=== PATIENT | female | born 1935 | race Caucasian/White ===

== ENCOUNTER 2018-10-13 20:14 | Inpatient (IN) | payer MEDICARE, OTHER ==
[2018-10-13] VITALS (105 sets, daily range): BP systolic 199; BP diastolic 76; PULSE 61; TEMP 97.8; O2SAT 84–100
[~2018-10-13] VITALS: Ht 160 cm; Wt 73.4 kg
--- NOTE | 2018-10-13 21:41 | NUR ---
Arrived to the unit via EMS. Patient alert and in no distress upon arrival. Attached to all monitors. Son and at bedside. All questions and concerns addressed.
--- NOTE | 2018-10-13 22:00 | NUR ---
Patient alert and partially oriented. Able to say the month and knows the current present, but unable to state day and year. Frequently looks to to help with answering quesions. Able to follow all commands appropriately.
--- NOTE | 2018-10-13 22:30 | NUR ---
Hospitalist notified about patient elevated BP. Received PRN order for Hydralazine.
[2018-10-13 22:42] LABS: MAGNESIUM 1.6 mg/dL (1.6-2.3)
[2018-10-13 22:58] LABS: TROPONIN-I 0.213 ng/mL (0.000-0.035)
[2018-10-14] VITALS (408 sets, daily range): BP systolic 105–183; BP diastolic 46–88; PULSE 53–74; TEMP 97.8–98.4; O2SAT 83–100
[2018-10-14] LABS: CALCIUM 9.8 mg/dL (8.4-10.2); CREATININE, serum 1.01 (0.52-1.25); POTASSIUM 3.3 mmol/L (3.4-5.0)
[2018-10-14] MEDS ORDERED: BENICAR HCT 251 TAB PO (00:54)
[2018-10-14] MEDS ORDERED: BYSTOLIC20 MG PO (00:54)
[2018-10-14] MEDS ORDERED: COUMADIN 5MG5 MG/TAB PO ×2 (00:55→00:56)
[2018-10-14] MEDS ORDERED: CATAPRES0.2 MG PO (00:55)
[2018-10-14] MEDS ORDERED: TIAZAC240 MG PO (00:57)
[2018-10-14] MEDS ORDERED: XALATAN EYE DROPS OD (00:57)
[2018-10-14] MEDS ORDERED: LOTENSIN40 MG PO (00:58)
[2018-10-14] MEDS ORDERED: GLUCOPHAGE500 MG/TAB PO (00:58)
[2018-10-14] MEDS ORDERED: PRILOSEC 20MG20 MG PO (00:58)
[2018-10-14] MEDS ORDERED: K-DUR20 MEQ PO (01:00)
[2018-10-14] MEDS ORDERED: CALCIUM 600MG+D1 TAB PO (01:00)
[2018-10-14] MEDS ORDERED: MAG-OX 400400 MG/TAB PO (01:00)
[2018-10-14] MEDS ORDERED: ASPIRIN 81M81 MG/TA2 PO (01:00)
[2018-10-14] MEDS ORDERED: EPA FISH OIL1000 MG PO (01:01)
[2018-10-14] MEDS ORDERED: FERRO-TIME325 MG PO (01:01)
[2018-10-14] MEDS ORDERED: GENTEAL 10 ML10 M1 OP (01:02)
[2018-10-14] MEDS ORDERED: SYSTANE0.3% OP (01:02)
--- NOTE | 2018-10-14 03:47 | NUR ---
Resting quietly in bed. Woke up to take potassium replacement. No concerns at this time
[2018-10-14 05:13] LABS: BASO # 0.1 (0.0-0.2); BASO % 0.6 % (0.0-2.0); EOS % 0.3 % (0-4.0); GRAN # 5.7 (1.4-6.5); GRAN % 53.1 % (42.2-75.2); HEMATOCRIT 36.2 % (37.0-47.0); HEMOGLOBIN 11.8 g/dl (12.5-16.0); LYMPH # 3.7 (1.2-3.4); LYMPH % 34.1 % (20.0-51.0); MEAN CELL VOLUME 88 fl (80.0-100.0); MEAN CORPUSCULAR HEMOGLOBIN 29 pg (27.0-31.0); MEAN CORPUSCULAR HGB CONC 33 g/dl (33.0-37.0); MEAN PLATELET VOLUME 8.6 fl (7.4-10.4); MONO # 1.2 (0.1-0.6); MONO % 11.5 % (1.7-9.3); PLATELET COUNT 294 K/mm3 (130-400); RED BLOOD COUNT 4.11 M/mm3 (4.10-5.30); REDCELL DISTRIBUTION WIDTH-CV 13.7 % (11.5-14.5)
[2018-10-14 05:20] LABS: INR 3.2 (0.8-3.0); PROTHROMBIN TIME 36.3 SECONDS (9.7-12.8)
[2018-10-14 05:27] LABS: ALBUMIN 3.6 gm/dL (3.5-5.0); BILIRUBIN,TOTAL 0.4 mg/dL (0.0-1.0); CALCIUM 9.5 mg/dL (8.4-10.2); CHOLESTEROL RISK RATIO 5.4; CREATININE, serum 0.83 (0.52-1.25); MAGNESIUM 2.3 mg/dL (1.6-2.3); POTASSIUM 3.7 mmol/L (3.4-5.0); TOTAL PROTEIN 7.4 gm/dL (6.4-8.2)
[2018-10-14 05:37] LABS: TROPONIN-I 0.163 ng/mL (0.000-0.035)
--- NOTE | 2018-10-14 10:24 | NUR ---
ALONSO met with the patient to discuss a discharge plan. The patient lives in [place] with her [place]. The pt does not use any DME and reports independence with ADLs. The pt's PCP is Dr. Nika Gonzales and the pt receives her medication from [facility]. The pt reports no difficulties obtaining her medications. The pt does not have advanced directives in the EMR, but reports she does have them completed. The patient plans to return home upon discharge. There are no additional needs at this time.
--- NOTE | 2018-10-14 11:33 | NUR ---
Patient resting in bed this AM. She denies any pain/discomfort at this time. Denies any c/o chest pain. Patient is alert and oriented x 3 Skin w/d. Color pale pink. w/d. Lung CTA with resp even/unlabored. HR strong/regular at this time. Patient remains in NSR. Abd soft with bowel sounds x 4 quads. Patient has been up to the bathroom multiple times this AM; voiding only 150-200 cc per void. Patient reports this is normal for her. Will get an order for UA just to assure no infection is present. PPP. No pedal edema noted. Patient is steady on her feet and denies any dizziness/light headedness with movement
--- NOTE | 2018-10-14 11:49 | NUR ---
Initial visit; Patient thanked Retail Worker for looking in on her and offering God's blessings.
[2018-10-14 14:17] LABS: PH 9 (5-8); SQUAMOUS EPITHELIAL 0-2 /hpf; URINE APPEARANCE Clear; URINE BACTERIA None Seen /hpf; URINE BILIRUBIN Negative (NEGATIVE); URINE BLOOD Negative (NEGATIVE); URINE COLOR Straw; URINE GLUCOSE Negative (NEGATIVE); URINE KETONE Negative (NEGATIVE); URINE LEUKOCYTE ESTERASE Negative (NEGATIVE); URINE NITRATE Negative (NEGATIVE); URINE PROTEIN(semi-quant) Negative (NEGATIVE); URINE RBC 0-2 /hpf; URINE UROBILINOGEN Negative (NEGATIVE)
[2018-10-14 14:28] LABS: COLLECTION METHOD CLEAN CATCH
--- NOTE | 2018-10-14 19:21 | NUR ---
Report with KEVYN Lemos. Pt resting in bed, denies needs at this time. Call light in reach.
[2018-10-15] VITALS (10 sets, daily range): BP systolic 100–172; BP diastolic 39–68; PULSE 50–76; TEMP 97.7–98.6
--- NOTE | 2018-10-15 02:18 | NUR ---
PATIENT WALKING OUT IN HALLWAY SAYING "SOMETHING IS WRONG, I SIGNED TO HAVE SOMETHING DONE AND I DON'T WANT TO DO IT". PERSONAL BELONGINGS PACKED AND PATIENT CALLED TO TAKE HER HOME. LOOKING AT CHART PATIENT HAS CUBA SCAN SCHEDULED IN AM WITH SIGNED CONSENT ON CHART. CONSENT FORM AND PRINTED EDUCATION ON CUBA SCAN REVIEWED WITH PATIENT. PATIENT STILL APPREHENSIVE DEMANDING TO GO HOME. DISCUSSED RISK OF LEAVING THE HOSPITAL AT THIS TIME. INFORMED PATIENT THAT NO TEST OR PROCEDURES WOULD BE PERFORMED WITHOUT HER INFORMED CONSENT. AFTER DISCUSSION PATIENT AGREES TO STAY AND TALK TO CARDIOLOGY WHEN THEY ROUND. AT END OF VISIT PATIENT SITTING ON BEDSIDE COUCH WATCHING BASEBALL GAME ON TV. DENIES NEEDS.
--- NOTE | 2018-10-15 06:28 | NUR ---
DR TINEO PAGED REGARDING QTc. TELEPHONE ORDER RECEIVED TO GIVE SOTOLOL PREVIOUSLY ORDERED. NOTIFIED OF PATIENTS NOT WANTING CUBA SCAN AND HE SAYS OKAY.
[2018-10-15 07:16] LABS: BASO # 0.1 (0.0-0.2); BASO % 0.5 % (0.0-2.0); GRAN % 55.8 % (42.2-75.2); HEMOGLOBIN 11.6 g/dl (12.5-16.0); LYMPH # 3.5 (1.2-3.4); LYMPH % 32.6 % (20.0-51.0); MEAN CELL VOLUME 88 fl (80.0-100.0); MEAN CORPUSCULAR HEMOGLOBIN 29 pg (27.0-31.0); MEAN CORPUSCULAR HGB CONC 33 g/dl (33.0-37.0); MEAN PLATELET VOLUME 8.9 fl (7.4-10.4); MONO # 1.2 (0.1-0.6); MONO % 10.8 % (1.7-9.3); PLATELET COUNT 300 K/mm3 (130-400); RED BLOOD COUNT 4.05 M/mm3 (4.10-5.30); REDCELL DISTRIBUTION WIDTH-CV 13.7 % (11.5-14.5)
[2018-10-15 07:24] LABS: HEMATOCRIT 35.6 % (37.0-47.0)
[2018-10-15 07:32] LABS: CALCIUM 9.6 mg/dL (8.4-10.2); CREATININE, serum 1.11 (0.52-1.25); INR 2.3 (0.8-3.0); MAGNESIUM 2.1 mg/dL (1.6-2.3); POTASSIUM 3.6 mmol/L (3.4-5.0); PROTHROMBIN TIME 27.2 SECONDS (9.7-12.8)
[2018-10-15 07:47] LABS: TROPONIN-I 0.061 ng/mL (0.000-0.035)
--- NOTE | 2018-10-15 09:56 | NUR ---
Pt taken down to finish Lexiscan.
--- NOTE | 2018-10-15 10:06 | NUR ---
Initial visit; Patient thanked Tower Erector Helper for looking in on her and offering God's blessings. Patient hopes to be discharged today.
--- NOTE | 2018-10-15 11:39 | NUR ---
Pt returned from [facility]. Pt alert and oriented and wants to drink.
--- NOTE | 2018-10-15 18:00 | NUR ---
Pt lexiscan was negative. Pt independent in the room. Pt alert and oriented. Pt IV intact no redness or infiltration. Pt has spouse in room. Pt denies SOB or chest pain and remains on telemetry. Pt has call light in reach and jaylon further needs. Pt sotolol given late d/t lexiscan so HS dose held per pharmacy.
--- NOTE | 2018-10-15 20:40 | NUR ---
Pt resting with HOB elevated. Denies pain or discomfort. No distress noted. Assessment WNL. Respirations even and unlabored. Lungs clear. BS+. Abdomen soft and nontender. Vital signs stable. Telemetry in place- Sinus bradycardia. No needs noted at this time. Will continue to monitor.
[2018-10-16 02:54] LABS: BASO % 0.3 % (0.0-2.0); EOS % 0.1 % (0-4.0); GRAN # 5.8 (1.4-6.5); GRAN % 53.3 % (42.2-75.2); HEMOGLOBIN 11.5 g/dl (12.5-16.0); LYMPH # 3.7 (1.2-3.4); LYMPH % 34.2 % (20.0-51.0); MEAN CELL VOLUME 86 fl (80.0-100.0); MEAN CORPUSCULAR HEMOGLOBIN 29 pg (27.0-31.0); MEAN CORPUSCULAR HGB CONC 33 g/dl (33.0-37.0); MEAN PLATELET VOLUME 8.7 fl (7.4-10.4); MONO # 1.3 (0.1-0.6); MONO % 11.8 % (1.7-9.3); PLATELET COUNT 291 K/mm3 (130-400); RED BLOOD COUNT 4.02 M/mm3 (4.10-5.30); REDCELL DISTRIBUTION WIDTH-CV 13.6 % (11.5-14.5)
[2018-10-16 02:56] LABS: HEMATOCRIT 34.7 % (37.0-47.0)
[2018-10-16 03:06] LABS: CALCIUM 10.3 mg/dL (8.4-10.2); CREATININE, serum 1.16 (0.52-1.25); POTASSIUM 3.3 mmol/L (3.4-5.0)
--- NOTE | 2018-10-16 03:20 | NUR ---
Patients K level resulted at 3.3 this AM. Potassium protocol initiated. Replacement orders placed.
[2018-10-16 03:21] VITALS: BP 144/49; PULSE 50; TEMP 98.6
--- NOTE | 2018-10-16 07:00 | NUR ---
Report given to Eloy BAGLEY. Pt is resting this AM. No distress. No complaints.
[2018-10-16 07:49] VITALS: BP 143/47; PULSE 52; TEMP 97.4
[2018-10-16] MEDS ORDERED: LIPITOR 10MG10 MG PO (07:54)
[2018-10-16] MEDS ORDERED: BETAPACE 80MG80 MG PO (07:55)
[2018-10-16 09:26] LABS: INR 1.8 (0.8-3.0); PROTHROMBIN TIME 20.8 SECONDS (9.7-12.8)
--- NOTE | 2018-10-16 09:41 | NUR ---
Patient will discharge home today, 10/16. SW presented IM to patient and . Patient signed but did not want a copy.
--- NOTE | 2018-10-16 10:19 | NUR ---
Pt resting in bed watching TV, up to restroom earlier, no C/O pain at this time, shift assessments complete, left Pt call light in reach, bed in lowest position.
[2018-10-16] MEDS ORDERED: CARDIZEM CD 18180 MG PO (11:08)
[2018-10-16 11:37] VITALS: BP 128/89; PULSE 54; TEMP 98.2
--- NOTE | 2018-10-16 13:02 | NUR ---
Pt discharged to home, escorted to [facility].
== END 2018-10-16 12:40 | disposition home or self-care (01) | DRG 281 ==
LOC: ICU 20:14 → MEDICAL 10-14 14:51
PROVIDERS: Nurse Practitioner; Nurse Practitioner Family; Physician Assistant; ADMIT Internal Medicine
DX: I48.91 Unspecified atrial fibrillation (principal); I21.4 Non-ST elevation (NSTEMI) myocardial infarction; I24.8 Other forms of acute ischemic heart disease; I48.92 Unspecified atrial flutter; I10 Essential (primary) hypertension; I48.1 Persistent atrial fibrillation; I70.1 Atherosclerosis of renal artery; E11.9 Type 2 diabetes mellitus without complications; E78.5 Hyperlipidemia, unspecified; E83.42 Hypomagnesemia; I08.0 Rheumatic disorders of both mitral and aortic valves; I44.0 Atrioventricular block, first degree; E87.6 Hypokalemia; I35.0 Nonrheumatic aortic (valve) stenosis; F03.90 Unspecified dementia, unspecified severity, without behavioral disturbance, psychotic disturbance, mood disturbance, and anxiety; H91.90 Unspecified hearing loss, unspecified ear; Z96.651 Presence of right artificial knee joint; Z79.01 Long term (current) use of anticoagulants; Z79.82 Long term (current) use of aspirin; Z79.84 Long term (current) use of oral hypoglycemic drugs; Z86.73 Personal history of transient ischemic attack (TIA), and cerebral infarction without residual deficits
CPT/HCPCS: 99223-AI; 99233-AI; 99239; A9500; J0360; J1815; J3475; J7030